=== PATIENT | female | born 1975 | race Caucasian/White ===

== ENCOUNTER 2016-10-30 09:33 | Emergency (ER) | payer OTHER ==
[~2016-10-30] VITALS: Ht 149.9 cm; Wt 70.0 kg
[~2016-10-30 09:33] MED LIST: BACTRIM DS1 TAB PO; BP MED OR; CEPHALEXIN500 MG PO; CIPRO500 MG OR; CIPROFLOXACN500 MG PO; DIURETIC OR; FLEXERIL5 MG PO; GENTAK0.32 OD; HYDROCHLOROT12.5 MG PO; LISINOP/HCTZ1 TAB PO; LISINOPRIL10 MG PO; MOTRIN800 MG OR; NAPROSYN500 MG OR; NAPROSYN500 MG PO; NO HOME MEDS; PENICILLN VK500 MG PO; PREDNISONE20 MG OR; PYRIDIUM200 MG PO; TRAMADOL HCL50 MG OR; ULTRAM50 M1 PO; UNKNOWN BP MED
[2016-10-30] MEDS ORDERED: PREDNISONE10 MG PO (09:50)
[2016-10-30] MEDS ORDERED: FLEXERIL PO (09:50)
[2016-10-30] MEDS ORDERED: TRAMADOL HYDROC50 MG PO (09:50)
[2016-10-30 10:00] VITALS: BP 166/84
== END 2016-10-30 10:00 | disposition home or self-care (01) | DRG 552 ==
LOC: ED 09:33
DX: M54.5 Low back pain (principal); M62.830 Muscle spasm of back

== ENCOUNTER 2017-02-21 17:55 | Emergency (ER) | payer OTHER ==
[~2017-02-21] VITALS: Ht 149.9 cm; Wt 80.0 kg
[~2017-02-21 17:55] MED LIST changes: +FLEXERIL PO; +PREDNISONE10 MG PO; +TRAMADOL HYDROC50 MG PO
[2017-02-21 18:56] LABS: HEMATOCRIT 41.7 % (37.0-47.0); IMMATURE GRANULOCYTES 0.4 % (0.0-1.0); MEAN CELL VOLUME 91.2 fL CALC (80.0-100.0); MEAN CORPUSCULAR HGB 30.6 pG CALC (26.0-32.0); MEAN CORPUSCULAR HGB CONC 33.6 g/L CALC (32.0-36.0); NEUT# 7.01 thou/uL (2.00-7.15); RED BLOOD COUNT 4.57 mill/uL (4.20-5.60); RED CELL DISTRI WIDTH 12.9 % (11.5-15.5)
[2017-02-21 18:57] LABS: URINE BILIRUBIN - DIPSTICK NEGATIVE (NEGATIVE); URINE BLOOD DIPSTICK TRACE-LYSED (NEGATIVE); URINE CLARITY CLEAR; URINE COLOR YELLOW; URINE GLUCOSE - DIPSTICK NEGATIVE (NEGATIVE); URINE KETONE NEGATIVE (NEGATIVE); URINE NITRITE - DIPSTICK NEGATIVE (Negative); URINE PROTEIN - DIPSTICK NEGATIVE (NEG-TRACE); URINE UROBILINOGEN - DIPSTICK 0.2 E.U./dL (0.2)
[2017-02-21 19:04] LABS: URINE LEUK ESTERASE SMALL (NEGATIVE)
[2017-02-21 19:11] LABS: ALBUMIN 4.6 g/dL (3.2-5.0); BILIRUBIN, TOTAL 0.3 mg/dL (0.0-1.4); CALCIUM 9.5 mg/dL (8.4-10.2); CREATININE 1.6 mg/dL (0.5-1.0); POTASSIUM 4.7 mmol/l (3.5-5.1); TOTAL PROTEIN 7.9 g/dL (6.3-8.2)
[2017-02-21 19:11] LABS: URINE RBC 0-2 RBC/hpf (0-5); URINE SQUAMOUS EPITHELIAL CELL FEW EPI/hpf (0-FEW)
[2017-02-21] MEDS ORDERED: LORTAB 5/3255 MG PO (19:57)
[2017-02-21] MEDS ORDERED: MACROBID100 MG PO (19:57)
[2017-02-21 20:04] VITALS: BP 189/76
== END 2017-02-21 20:07 | disposition home or self-care (01) | DRG 690 ==
LOC: ED 17:55
DX: N39.0 Urinary tract infection, site not specified (principal); I10 Essential (primary) hypertension; M54.5 Low back pain; B96.20 Unspecified Escherichia coli [E. coli] as the cause of diseases classified elsewhere

== ENCOUNTER 2017-04-13 19:41 | Emergency (ER) | payer OTHER ==
[~2017-04-13] VITALS: Ht 149.9 cm; Wt 80.2 kg
[~2017-04-13 19:41] MED LIST changes: +LORTAB 5/3255 MG PO; +MACROBID100 MG PO
[2017-04-13] MEDS ORDERED: NAPROSYN500 MG PO (21:46)
[2017-04-13 21:50] VITALS: BP 151/74
== END 2017-04-13 21:50 | disposition home or self-care (01) | DRG 556 ==
LOC: ED 19:41
DX: M79.632 Pain in left forearm (principal); I10 Essential (primary) hypertension; K21.9 Gastro-esophageal reflux disease without esophagitis; F17.210 Nicotine dependence, cigarettes, uncomplicated

== ENCOUNTER 2017-07-01 00:40 | Emergency (ER) | payer OTHER ==
[~2017-07-01] VITALS: Ht 149.9 cm; Wt 80.6 kg
[2017-07-01] MEDS ORDERED: ULTRAM50 M1 PO (01:39)
[2017-07-01 01:50] VITALS: BP 148/89
== END 2017-07-01 01:55 | disposition home or self-care (01) | DRG 552 ==
LOC: ED 00:40
DX: M54.5 Low back pain (principal); F17.210 Nicotine dependence, cigarettes, uncomplicated; I10 Essential (primary) hypertension; K21.9 Gastro-esophageal reflux disease without esophagitis

== ENCOUNTER 2017-09-02 08:48 | Emergency (ER) | payer OTHER ==
[~2017-09-02] VITALS: Ht 149.9 cm; Wt 78.0 kg
[2017-09-02] MEDS ORDERED: PRILOSEC OTC20 MG PO (09:16)
[2017-09-02] MEDS ORDERED: ZITHROMAX250 MG PO (09:25)
[2017-09-02] MEDS ORDERED: TESSALON PER100 MG PO (09:25)
[2017-09-02 09:45] VITALS: BP 115/72
== END 2017-09-02 09:45 | disposition home or self-care (01) | DRG 203 ==
LOC: ED 08:48
DX: J20.9 Acute bronchitis, unspecified (principal); F17.210 Nicotine dependence, cigarettes, uncomplicated; R50.9 Fever, unspecified; R05 Cough

== ENCOUNTER 2017-09-05 19:28 | Emergency (ER) | payer OTHER ==
[~2017-09-05] VITALS: Ht 149.9 cm; Wt 77.8 kg
[~2017-09-05 19:28] MED LIST changes: +PRILOSEC OTC20 MG PO; +TESSALON PER100 MG PO; +ZITHROMAX250 MG PO
[2017-09-05 20:36] LABS: INFLUENZA A NONE DETECTED (NONE DETECT); INFLUENZA B POSITIVE (NONE DETECT)
[2017-09-05] MEDS ORDERED: TAM75CAP PO (22:40)
[2017-09-05] MEDS ORDERED: AMOXICILLIN500 MG PO (22:40)
[2017-09-05] MEDS ORDERED: CODEINE/GUAIFEN1 SOL PO (22:40)
[2017-09-05 22:55] VITALS: BP 96/68
== END 2017-09-05 22:55 | disposition home or self-care (01) | DRG 195 ==
LOC: ED 19:28
PROVIDERS: Emergency Medicine
DX: J10.1 Influenza due to other identified influenza virus with other respiratory manifestations (principal); J02.0 Streptococcal pharyngitis; R50.9 Fever, unspecified; R05 Cough; R11.2 Nausea with vomiting, unspecified; R09.81 Nasal congestion

== ENCOUNTER 2017-11-26 13:01 | Emergency (ER) | payer OTHER ==
[~2017-11-26] VITALS: Ht 149.9 cm; Wt 90.0 kg
[~2017-11-26 13:01] MED LIST changes: +AMOXICILLIN500 MG PO; +CODEINE/GUAIFEN1 SOL PO; +TAM75CAP PO
[2017-11-26 14:58] LABS: URINE BILIRUBIN - DIPSTICK NEGATIVE (NEGATIVE); URINE BLOOD DIPSTICK TRACE-INTACT (NEGATIVE); URINE COLOR YELLOW; URINE GLUCOSE - DIPSTICK NEGATIVE (NEGATIVE); URINE KETONE NEGATIVE (NEGATIVE); URINE NITRITE - DIPSTICK NEGATIVE (Negative); URINE PROTEIN - DIPSTICK NEGATIVE (NEG-TRACE); URINE UROBILINOGEN - DIPSTICK 0.2 E.U./dL (0.2)
[2017-11-26 15:07] LABS: URINE CLARITY HAZY; URINE LEUK ESTERASE SMALL (NEGATIVE)
[2017-11-26 15:14] LABS: URINE SQUAMOUS EPITHELIAL CELL FEW EPI/hpf (0-FEW)
[2017-11-26] MEDS ORDERED: IBUPROFEN600 MG PO (15:26)
[2017-11-26] MEDS ORDERED: KEFLEX500 M1 PO (15:26)
[2017-11-26 15:45] VITALS: BP 122/79
== END 2017-11-26 15:45 | disposition home or self-care (01) | DRG 552 ==
LOC: ED 13:01
DX: M54.5 Low back pain (principal); N39.0 Urinary tract infection, site not specified; F17.210 Nicotine dependence, cigarettes, uncomplicated; I10 Essential (primary) hypertension; B96.20 Unspecified Escherichia coli [E. coli] as the cause of diseases classified elsewhere

== ENCOUNTER 2018-01-15 09:35 | Emergency (ER) | payer OTHER ==
[~2018-01-15] VITALS: Ht 149.9 cm; Wt 75.0 kg
[~2018-01-15 09:35] MED LIST changes: +IBUPROFEN600 MG PO; +KEFLEX500 M1 PO
[2018-01-15] MEDS ORDERED: METHOCARBAM750 MG PO (10:06)
[2018-01-15] MEDS ORDERED: ATORVASTATIN CA20 MG PO (10:06)
[2018-01-15] MEDS ORDERED: NABUMETONE500 MG PO (10:07)
[2018-01-15] MEDS ORDERED: AMLODIPINE BESYL5 MG PO (10:07)
[2018-01-15 10:14] LABS: HEMOGLOBIN 12.2 g/dl (12.0-16.0); IMMATURE GRANULOCYTES 0.3 % (0.0-1.0); MEAN CELL VOLUME 91.6 fL CALC (80.0-100.0); MEAN CORPUSCULAR HGB 31.9 pG CALC (26.0-32.0); MEAN CORPUSCULAR HGB CONC 34.9 g/L CALC (32.0-36.0); NEUT# 10.97 thou/uL (2.00-7.15); RED BLOOD COUNT 3.82 mill/uL (4.20-5.60); RED CELL DISTRI WIDTH 12.5 % (11.5-15.5)
[2018-01-15 10:31] LABS: BARBITURATES NEGATIVE (NEGATIVE); COCAINE NEGATIVE (NEGATIVE); METHADONE NEGATIVE (NEGATIVE); OXCYCODONE NEGATIVE (NEGATIVE); TETRAHYDROCANNABIONOL NEGATIVE (NEGATIVE); TRICYLIC ANTIDEPRESSANTS NEGATIVE (NEGATIVE)
[2018-01-15 10:35] LABS: ALKALINE PHOSPHATASE 83 u/l (38-126); ANION GAP 15 (6-22 (CALC)); BILIRUBIN, TOTAL 0.2 mg/dL (0.0-1.4); BUN 15 mg/dL (7-17); BUN/CREATININE RATIO 11 (12-20 (CALC)); CARBON DIOXIDE 26 mmol/l (22-30); CHLORIDE 100 mmol/l (95-108); CREATININE 1.4 mg/dL (0.5-1.0); GFR 41 ML/MIN (>=60 (CALC)); GFR FOR AFR.AMER. 49 ML/MIN (>=60 (CALC)); POTASSIUM 4.5 mmol/l (3.5-5.1); SGOT/AST 28 u/l (14-36); SGPT/ALT 33 u/l (9-52); SODIUM 137 mmol/l (137-146); TOTAL PROTEIN 7.2 g/dL (6.3-8.2)
[2018-01-15 10:43] LABS: MYOGLOBIN 24 ng/mL (0 - 62)
[2018-01-15] MEDS ORDERED: PRILOSEC20 MG PO (12:45)
[2018-01-15 13:00] VITALS: BP 127/63
== END 2018-01-15 13:00 | disposition home or self-care (01) | DRG 392 ==
LOC: ED 09:35
PROVIDERS: Emergency Medicine
DX: R10.13 Epigastric pain (principal); R07.89 Other chest pain; I10 Essential (primary) hypertension; K21.9 Gastro-esophageal reflux disease without esophagitis; F17.210 Nicotine dependence, cigarettes, uncomplicated

== ENCOUNTER 2018-12-05 08:22 | Emergency (ER) | payer OTHER ==
[~2018-12-05] VITALS: Ht 149.9 cm; Wt 72.7 kg
[~2018-12-05 08:22] MED LIST changes: +AMLODIPINE BESYL5 MG PO; +ATORVASTATIN CA20 MG PO; +METHOCARBAM750 MG PO; +NABUMETONE500 MG PO; +PRILOSEC20 MG PO
[2018-12-05] MEDS ORDERED: WATERPILL (08:38)
[2018-12-05 08:55] LABS: HEMATOCRIT 36.2 % (37.0-47.0); HEMOGLOBIN 12.4 g/dl (12.0-16.0); IMMATURE GRANULOCYTES 0.6 % (0.0-5.0); MEAN CELL VOLUME 91.6 fL CALC (80.0-100.0); MEAN CORPUSCULAR HGB 31.4 pG CALC (26.0-32.0); MEAN CORPUSCULAR HGB CONC 34.3 g/L CALC (32.0-36.0); NEUT# 10.11 thou/uL (2.00-7.15); RED BLOOD COUNT 3.95 mill/uL (4.20-5.60); RED CELL DISTRI WIDTH 12.8 % (11.5-15.5)
[2018-12-05 09:10] LABS: ANION GAP 15 (6-22 (CALC)); BUN 22 mg/dL (7-17); BUN/CREATININE RATIO 16 (12-20 (CALC)); CARBON DIOXIDE 22 mmol/l (22-30); CHLORIDE 100 mmol/l (95-108); CREATININE 1.4 mg/dL (0.5-1.0); GFR 41 ML/MIN (>=60 (CALC)); GFR FOR AFR.AMER. 49 ML/MIN (>=60 (CALC)); POTASSIUM 4.3 mmol/l (3.5-5.1); SODIUM 132 mmol/l (137-146)
[2018-12-05 09:29] LABS: URINE BILIRUBIN - DIPSTICK NEGATIVE (NEGATIVE); URINE BLOOD DIPSTICK NEGATIVE (NEGATIVE); URINE COLOR YELLOW; URINE GLUCOSE - DIPSTICK NEGATIVE (NEGATIVE); URINE KETONE NEGATIVE (NEGATIVE); URINE LEUK ESTERASE TRACE (NEGATIVE); URINE PH 5.5 (4.5-8.0); URINE PROTEIN - DIPSTICK NEGATIVE (NEG-TRACE); URINE SPECIFIC GRAVITY <=1.005; URINE UROBILINOGEN - DIPSTICK 0.2 E.U./dL (0.2)
[2018-12-05 09:30] LABS: BETA-HCG, QUANT(RESULT NUMBER) < 3 mIU/mL
[2018-12-05 09:34] LABS: URINE NITRITE - DIPSTICK POSITIVE (Negative)
[2018-12-05 09:37] LABS: URINE BACTERIA MANY hpf; URINE SQUAMOUS EPITHELIAL CELL MODERATE EPI/hpf (0-FEW); URINE WBC 0-2 WBC/hpf (0-5)
[2018-12-05 11:06] VITALS: BP 112/66
[2018-12-05] MEDS ORDERED: CEPHALEXIN500 M1 PO (13:56)
== END 2018-12-05 11:05 | disposition home or self-care (01) ==
LOC: ED 08:22
PROVIDERS: Family Medicine
DX: R55 Syncope and collapse (principal); B96.20 Unspecified Escherichia coli [E. coli] as the cause of diseases classified elsewhere; Y92.007 Garden or yard of unspecified non-institutional (private) residence as the place of occurrence of the external cause; F17.200 Nicotine dependence, unspecified, uncomplicated

== ENCOUNTER 2019-12-15 18:01 | Emergency (ER) | payer OTHER ==
[~2019-12-15 18:01] MED LIST changes: +CEPHALEXIN500 M1 PO; +WATERPILL
[2019-12-15] MEDS ORDERED: LASIX20 MG PO (18:21)
[2019-12-15] MEDS ORDERED: NEXIUM40 M1 PO (18:22)
[2019-12-15] MEDS ORDERED: OMEPRAZOLE DR40 MG PO (18:46)
[2019-12-15] MEDS ORDERED: HYDROCHLOROT25 MG PO (18:47)
[2019-12-15 20:50] VITALS: BP 133/89
== END 2019-12-15 20:50 | disposition home or self-care (01) ==
LOC: ED 18:01
DX: M25.461 Effusion, right knee (principal); M25.561 Pain in right knee; M17.11 Unilateral primary osteoarthritis, right knee; I10 Essential (primary) hypertension; F17.210 Nicotine dependence, cigarettes, uncomplicated; W01.0XXA Fall on same level from slipping, tripping and stumbling without subsequent striking against object, initial encounter; Y92.009 Unspecified place in unspecified non-institutional (private) residence as the place of occurrence of the external cause
CPT/HCPCS: L1830

== ENCOUNTER 2022-03-03 10:08 | Observation (INO) | payer OTHER ==
[~2022-03-03] VITALS: Ht 152.4 cm; Wt 69.0 kg
[2022-03-03] VITALS (12 sets, daily range): BP systolic 106–142; BP diastolic 58–93
[~2022-03-03 10:08] MED LIST changes: +HYDROCHLOROT25 MG PO; +LASIX20 MG PO; +NEXIUM40 M1 PO; +OMEPRAZOLE DR40 MG PO
[2022-03-03 11:20] LABS: HEMATOCRIT 35.3 % (37.0-47.0); HEMOGLOBIN 12.5 g/dl (12.0-16.0); IMMATURE GRANULOCYTES 0.3 % (0.0-5.0); MEAN CELL VOLUME 86.9 fL CALC (80.0-100.0); MEAN CORPUSCULAR HGB 30.8 pG CALC (26.0-32.0); MEAN CORPUSCULAR HGB CONC 35.4 g/dL CAL (32.0-36.0); NEUT# 7.02 thou/uL (2.00-7.15); RED BLOOD COUNT 4.06 mill/uL (4.20-5.60); RED CELL DISTRI WIDTH 13.5 % (11.5-15.5)
[2022-03-03 11:29] LABS: ALBUMIN 3.7 g/dL (3.2-5.0); ALKALINE PHOSPHATASE 64 u/l (38-126); BUN 12 mg/dL (7-17); BUN/CREATININE RATIO 11 (12-20 (CALC)); CHLORIDE 91 mmol/l (95-108); CREATININE 1.1 mg/dL (0.5-1.0); GFR FOR AFR.AMER. > 60 ML/MIN (>=60 (CALC)); GFR OTHER RACES 53 ML/MIN (>=60 (CALC)); SGOT/AST 22 u/l (14-36); SODIUM 130 mmol/l (137-146); TOTAL PROTEIN 6.2 g/dL (6.3-8.2)
[2022-03-03 11:36] LABS: ANION GAP 9 (6-22 (CALC)); BILIRUBIN, TOTAL 0.4 mg/dL (0.0-1.4); CARBON DIOXIDE 32 mmol/l (22-30); POTASSIUM 2.3 mmol/l (3.5-5.1)
[2022-03-03] MEDS ORDERED: NORVASC10 M1 PO (12:54)
[2022-03-03] MEDS ORDERED: LIPITOR20 M1 PO (12:55)
[2022-03-03 18:59] LABS: CREATININE 1.4 mg/dL (0.5-1.0)
== END 2022-03-03 20:07 | disposition left against medical advice (07) ==
LOC: ED 10:08 → ED-I 11:40 → ED 12:03 → MS2 12:04
PROVIDERS: Family Medicine; ADMIT Internal Medicine; ATTEND Internal Medicine
DX: E87.6 Hypokalemia (principal); I10 Essential (primary) hypertension; E78.00 Pure hypercholesterolemia, unspecified; F17.210 Nicotine dependence, cigarettes, uncomplicated; Z20.822 Contact with and (suspected) exposure to COVID-19; M79.89 Other specified soft tissue disorders
CPT/HCPCS: G0378; J3475

== ENCOUNTER 2022-09-04 18:41 | Emergency (ER) | payer OTHER ==
[2022-09-04] VITALS (10 sets, daily range): BP systolic 70–147; BP diastolic 42–92
[~2022-09-04] VITALS: Ht 152.4 cm; Wt 72.0 kg
[~2022-09-04 18:41] MED LIST changes: +LIPITOR20 M1 PO; +NORVASC10 M1 PO
[2022-09-04] MEDS ORDERED: PROTONIX40 M2 PO (20:02)
[2022-09-04] MEDS ORDERED: POT CHLORIDE10 ME5 PO (20:03)
[2022-09-04 20:26] LABS: BASO% 0.5 % (0-3); IMMATURE GRANULOCYTES 0.2 % (0.0-5.0); LYMPH% 24.3 % (15-41); MEAN CELL VOLUME 86.3 fL CALC (80.0-100.0); MEAN CORPUSCULAR HGB 30.6 pG CALC (26.0-32.0); MEAN CORPUSCULAR HGB CONC 35.5 g/dL CAL (32.0-36.0); NEUT# 7.81 thou/uL (2.00-7.15); RED BLOOD COUNT 4.8 mill/uL (4.20-5.60); RED CELL DISTRI WIDTH 11.7 % (11.5-15.5)
[2022-09-04 20:28] LABS: HEMATOCRIT 41.4 % (37.0-47.0); HEMOGLOBIN 14.7 g/dl (12.0-16.0)
[2022-09-04 20:37] LABS: BILIRUBIN, TOTAL 0.3 mg/dL (0.02-1.3); CREATININE 1.3 mg/dL (0.5-1.0); MAGNESIUM 1.7 mg/dL (1.6-2.3); POTASSIUM 3.3 mmol/l (3.5-5.1)
[2022-09-04 20:54] LABS: ALBUMIN 4.5 g/dL (3.2-5.0); TOTAL PROTEIN 7.5 g/dL (6.3-8.2)
[2022-09-04 21:09] LABS: TSH, 3RD GENERATION 1.01 uIU/mL (0.47 - 4.68)
[2022-09-04] MEDS ORDERED: SOD CHLORIDE1 G2 OD (21:36)
[2022-09-04 22:06] LABS: URINE BILIRUBIN - DIPSTICK NEGATIVE (NEGATIVE); URINE BLOOD DIPSTICK SMALL (NEGATIVE); URINE COLOR YELLOW; URINE GLUCOSE - DIPSTICK NEGATIVE (NEGATIVE); URINE KETONE NEGATIVE (NEGATIVE); URINE LEUK ESTERASE TRACE (NEGATIVE); URINE PH 6.5 (4.5-8.0); URINE PROTEIN - DIPSTICK NEGATIVE (NEG-TRACE); URINE UROBILINOGEN - DIPSTICK 0.2 E.U./dL (0.2)
[2022-09-04 22:09] LABS: URINE NITRITE - DIPSTICK POSITIVE (Negative)
[2022-09-04 22:15] LABS: URINE BACTERIA MODERATE hpf; URINE RBC 0-2 RBC/hpf (0-5); URINE SQUAMOUS EPITHELIAL CELL MANY EPI/hpf (0-FEW); URINE TRANSITIONAL EPI. CELLS RARE hpf; URINE WBC 0-2 WBC/hpf (0-5)
== END 2022-09-04 23:14 | disposition home or self-care (01) ==
LOC: ED 18:41
PROVIDERS: Family Medicine
DX: E87.6 Hypokalemia (principal); E87.1 Hypo-osmolality and hyponatremia; I10 Essential (primary) hypertension; E78.00 Pure hypercholesterolemia, unspecified; F17.200 Nicotine dependence, unspecified, uncomplicated

== ENCOUNTER 2023-07-23 23:22 | Emergency (ER) | payer OTHER ==
[~2023-07-23] VITALS: Ht 152.4 cm; Wt 99.7 kg
[~2023-07-23 23:22] MED LIST changes: +POT CHLORIDE10 ME5 PO; +PROTONIX40 M2 PO; +SOD CHLORIDE1 G2 OD
[2023-07-24 00:10] VITALS: BP 149/96
[2023-07-24] MEDS ORDERED: OMEPRAZOLE DR40 MG (00:21)
[2023-07-24 00:37] LABS: URINE BILIRUBIN - DIPSTICK Negative (NEGATIVE); URINE BLOOD DIPSTICK Negative (NEGATIVE); URINE COLOR Yellow; URINE GLUCOSE - DIPSTICK Negative (NEGATIVE); URINE KETONE Negative (NEGATIVE); URINE LEUK ESTERASE Negative (NEGATIVE); URINE NITRITE - DIPSTICK Negative (Negative); URINE PROTEIN - DIPSTICK Negative (NEG-TRACE); URINE SPECIFIC GRAVITY <=1.005; URINE UROBILINOGEN - DIPSTICK 0.2 E.U./dL (0.2)
[2023-07-24 01:21] VITALS: BP 149/96
== END 2023-07-24 01:27 | disposition home or self-care (01) | DRG 690 ==
LOC: ED 23:22
PROVIDERS: Family Medicine
DX: N39.0 Urinary tract infection, site not specified (principal); I10 Essential (primary) hypertension; E78.00 Pure hypercholesterolemia, unspecified; K21.9 Gastro-esophageal reflux disease without esophagitis; F17.210 Nicotine dependence, cigarettes, uncomplicated

== ENCOUNTER 2023-09-06 20:05 | Emergency (ER) | payer OTHER ==
[~2023-09-06] VITALS: Ht 152.4 cm; Wt 78.0 kg
[2023-09-06] VITALS (11 sets, daily range): BP systolic 116–145; BP diastolic 54–83
[~2023-09-06 20:05] MED LIST changes: +OMEPRAZOLE DR40 MG; +OMEPRAZOLE20 MG PO; +[UNRECOGNIZED DRUG - OTHER] PO
[2023-09-06] MEDS ORDERED: PHENAZOPYRIDINE HCL 100 MG/TAB PO ONE (21:40)
[2023-09-06 21:45] LABS: URINE BILIRUBIN - DIPSTICK Negative (NEGATIVE); URINE BLOOD DIPSTICK Trace-lysed (NEGATIVE); URINE COLOR Yellow; URINE GLUCOSE - DIPSTICK Negative (NEGATIVE); URINE KETONE Negative (NEGATIVE); URINE LEUK ESTERASE Negative (NEGATIVE); URINE NITRITE - DIPSTICK Negative (Negative); URINE PH 5.5 (4.5-8.0); URINE PROTEIN - DIPSTICK Negative (NEG-TRACE); URINE SPECIFIC GRAVITY <=1.005; URINE UROBILINOGEN - DIPSTICK 0.2 E.U./dL (0.2)
[2023-09-07] VITALS: BP 111/65
[2023-09-07] MEDS ORDERED: BACTRIM DS1 TAB PO (00:06)
[2023-09-07 00:15] VITALS: BP 117/69
[2023-09-07 00:16] VITALS: BP 117/69
== END 2023-09-07 00:22 | disposition home or self-care (01) | DRG 690 ==
LOC: ED 20:05
PROVIDERS: Family Medicine
DX: N39.0 Urinary tract infection, site not specified (principal); I10 Essential (primary) hypertension; F17.210 Nicotine dependence, cigarettes, uncomplicated

== ENCOUNTER 2023-09-16 11:43 | Emergency (ER) | payer OTHER ==
[~2023-09-16] VITALS: Ht 152.4 cm; Wt 77.4 kg
[2023-09-16 13:46] VITALS: BP 153/80
[2023-09-16 14:15] VITALS: BP 140/84
[2023-09-16 14:30] VITALS: BP 150/88
[2023-09-16 14:48] VITALS: BP 140/92
[2023-09-16 14:54] LABS: BASO% 0.4 % (0-3); EOS% 2.7 % (0-8); HEMATOCRIT 42.2 % (37.0-47.0); HEMOGLOBIN 14.1 g/dl (12.0-16.0); IMMATURE GRANULOCYTES 0.2 % (0.0-5.0); LYMPH% 30.7 % (15-41); MEAN CORPUSCULAR HGB 30.7 pG CALC (26.0-32.0); MEAN CORPUSCULAR HGB CONC 33.4 g/dL CAL (32.0-36.0); MONO% 6.1 % (2-13); NEUT# 5.59 thou/uL (2.00-7.15); NEUT% 59.9 % (42-76); RED BLOOD COUNT 4.59 mill/uL (4.20-5.60); RED CELL DISTRI WIDTH 13.8 % (11.5-15.5)
[2023-09-16 14:55] LABS: MEAN CELL VOLUME 91.9 fL CALC (80.0-100.0)
[2023-09-16 15:09] VITALS: BP 141/99
== END 2023-09-16 15:29 | disposition home or self-care (01) | DRG 556 ==
LOC: ED 11:43
PROVIDERS: Family Medicine
DX: M79.641 Pain in right hand (principal); I10 Essential (primary) hypertension; E78.5 Hyperlipidemia, unspecified; F17.210 Nicotine dependence, cigarettes, uncomplicated

== ENCOUNTER 2024-01-20 08:33 | Emergency (ER) | payer OTHER ==
[2024-01-20] VITALS (7 sets, daily range): BP systolic 141–173; BP diastolic 75–91
[~2024-01-20] VITALS: Ht 152.4 cm; Wt 79.0 kg
[2024-01-20 09:08] LABS: BASO% 0.3 % (0-3); HEMATOCRIT 43.5 % (37.0-47.0); HEMOGLOBIN 14.4 g/dl (12.0-16.0); IMMATURE GRANULOCYTES 0.4 % (0.0-5.0); LYMPH% 17.6 % (15-41); MEAN CELL VOLUME 92.8 fL CALC (80.0-100.0); MEAN CORPUSCULAR HGB 30.7 pG CALC (26.0-32.0); MEAN CORPUSCULAR HGB CONC 33.1 g/dL CAL (32.0-36.0); NEUT# 9.1 thou/uL (2.00-7.15); NEUT% 71.7 % (42-76); RED BLOOD COUNT 4.69 mill/uL (4.20-5.60)
[2024-01-20 09:09] LABS: URINE BILIRUBIN - DIPSTICK Negative (NEGATIVE); URINE BLOOD DIPSTICK Trace-intact (NEGATIVE); URINE GLUCOSE - DIPSTICK Negative (NEGATIVE); URINE KETONE Negative (NEGATIVE); URINE LEUK ESTERASE Negative (NEGATIVE); URINE NITRITE - DIPSTICK Negative (Negative); URINE PH 6.5 (4.5-8.0); URINE PROTEIN - DIPSTICK Negative (NEG-TRACE); URINE SPECIFIC GRAVITY <=1.005; URINE UROBILINOGEN - DIPSTICK 0.2 E.U./dL (0.2)
[2024-01-20 09:11] LABS: URINE COLOR Yellow
[2024-01-20 09:35] LABS: ALBUMIN 4.3 g/dL (3.2-5.0); CREATININE 1.5 mg/dL (0.5-1.0); POTASSIUM 3.7 mmol/l (3.5-5.1); TOTAL PROTEIN 8.2 g/dL (6.3-8.2)
[2024-01-20 09:36] LABS: BILIRUBIN, TOTAL 0.3 mg/dL (0.02-1.3)
[2024-01-20] MEDS ORDERED: NAPROXEN500 MG PO (11:32)
[2024-01-20] MEDS ORDERED: OMNICEF300 MG PO (11:32)
[2024-01-20] MEDS ORDERED: KETOROLAC TROMETHAMINE 30 MG/ML SDV IV ONE (11:35)
== END 2024-01-20 12:04 | disposition home or self-care (01) | DRG 392 ==
LOC: ED 08:33
PROVIDERS: Family Medicine
DX: R10.32 Left lower quadrant pain (principal); R31.9 Hematuria, unspecified; D25.9 Leiomyoma of uterus, unspecified; I10 Essential (primary) hypertension; E78.00 Pure hypercholesterolemia, unspecified; K21.9 Gastro-esophageal reflux disease without esophagitis; F17.200 Nicotine dependence, unspecified, uncomplicated
CPT/HCPCS: Q9967

== ENCOUNTER 2024-04-15 19:11 | Emergency (ER) | payer OTHER ==
[~2024-04-15] VITALS: Ht 152.4 cm; Wt 79.0 kg
[~2024-04-15 19:11] MED LIST changes: +NAPROXEN500 MG PO; +OMNICEF300 MG PO
[2024-04-15 19:20] VITALS: BP 176/83
[2024-04-15 19:31] VITALS: BP 145/81
[2024-04-15] MEDS ORDERED: SODIUM CHLORIDE 0.9% 1,000 ML IV ONE (19:40)
[2024-04-15 19:58] LABS: BASO% 0.6 % (0-3); HEMATOCRIT 42.1 % (37.0-47.0); HEMOGLOBIN 13.9 g/dl (12.0-16.0); IMMATURE GRANULOCYTES 0.2 % (0.0-5.0); LYMPH% 31.6 % (15-41); MEAN CELL VOLUME 93.6 fL CALC (80.0-100.0); MEAN CORPUSCULAR HGB 30.9 pG CALC (26.0-32.0); MONO% 7.3 % (2-13); NEUT# 6.03 thou/uL (2.00-7.15); NEUT% 56.3 % (42-76); RED BLOOD COUNT 4.5 mill/uL (4.20-5.60); RED CELL DISTRI WIDTH 13.5 % (11.5-15.5)
[2024-04-15 20:12] LABS: ALBUMIN 4.4 g/dL (3.2-5.0); ALKALINE PHOSPHATASE 123 u/l (38-126); ANION GAP 10 (6-22 (CALC)); BILIRUBIN, TOTAL 0.3 mg/dL (0.02-1.3); BUN 20 mg/dL (7-17); BUN/CREATININE RATIO 13 (12-20 (CALC)); CARBON DIOXIDE 23 mmol/l (22-30); CHLORIDE 112 mmol/l (95-108); CREATININE 1.5 mg/dL (0.5-1.0); ESTIMATED GFR 42 ML/MIN (>=90 (CALC)); POTASSIUM 4.2 mmol/l (3.5-5.1); SGOT/AST 22 u/l (14-36); SODIUM 140 mmol/l (137-146); TOTAL PROTEIN 7.5 g/dL (6.3-8.2)
[2024-04-15 20:30] LABS: URINE BILIRUBIN - DIPSTICK Negative (NEGATIVE); URINE BLOOD DIPSTICK Trace-lysed (NEGATIVE); URINE COLOR Yellow; URINE GLUCOSE - DIPSTICK Negative (NEGATIVE); URINE KETONE Negative (NEGATIVE); URINE LEUK ESTERASE Negative (NEGATIVE); URINE NITRITE - DIPSTICK Negative (Negative); URINE PH 5.5 (4.5-8.0); URINE PROTEIN - DIPSTICK Negative (NEG-TRACE); URINE UROBILINOGEN - DIPSTICK 0.2 E.U./dL (0.2)
[2024-04-15 21:06] VITALS: BP 135/78
== END 2024-04-15 21:07 | disposition home or self-care (01) | DRG 641 ==
LOC: ED 19:11
PROVIDERS: Emergency Medicine
DX: E86.0 Dehydration (principal); I10 Essential (primary) hypertension; E78.00 Pure hypercholesterolemia, unspecified; K21.9 Gastro-esophageal reflux disease without esophagitis; F17.200 Nicotine dependence, unspecified, uncomplicated